=== PATIENT | male | born 1970 | race Caucasian/White ===

== ENCOUNTER 2019-04-25 21:08 | Emergency (ER) | payer BC, OTHER ==
[~2019-04-25] VITALS: Ht 198.1 cm; Wt 154.5 kg
[2019-04-25 23:15] LABS: BASOPHILS # (AUTO) 0.13 x10^3/uL (0-0.1); BASOPHILS % (AUTO) 1 % (0-1); EOSINOPHILS # (AUTO) 0.17 x10^3/uL (0-0.4); EOSINOPHILS % (AUTO) 1 % (1-7); LYMPHOCYTES # (AUTO) 2.31 x10^3/uL (1-3.4); LYMPHOCYTES % (AUTO) 18 % (22-44); MD NO; MEAN CORPUSCULAR HEMOGLOBIN 30.1 pg (27.5-34.5); MEAN CORPUSCULAR HGB CONC 33.3 g/dL (33.2-36.2); MEAN CORPUSCULAR VOLUME 90.6 fL (81-97); MEAN PLATELET VOLUME 7.7 fL (7.4-10.4); MONOCYTES # (AUTO) 0.63 x10^3/uL (0.2-0.8); MONOCYTES % (AUTO) 5 % (2-9); NEUTROPHILS # (AUTO) 9.39 x10^3/uL (1.8-6.8); NEUTROPHILS % (AUTO) 74 % (42-75); PLATELET COUNT 298 x10^3/uL (130-400); RED BLOOD COUNT 5.75 x10^6/uL (4.38-5.82); RED CELL DISTRIBUTION WIDTH 13.9 % (9.4-14.8)
[2019-04-25 23:25] LABS: ALBUMIN 3.7 g/dL (3.4-5.0); ANION GAP 5 mmol/L (5-15); CALCIUM 8.9 mg/dL (8.5-10.1); CHLORIDE 107 mmol/L (98-107); CREATININE 1.21 mg/dL (0.7-1.3)
[2019-04-25 23:34] VITALS: BP 170/113
== END 2019-04-26 00:08 | disposition home or self-care (01) ==
LOC: ED 04-26
DX: R10.84 Generalized abdominal pain (principal); I10 Essential (primary) hypertension
CPT/HCPCS: 36415; 80048; 82040; 83735; 85025; 99283

== ENCOUNTER 2020-04-03 11:02 | Emergency (ER) | payer OTHER ==
[~2020-04-03] VITALS: Ht 198.1 cm; Wt 157.8 kg
[2020-04-03 11:06] VITALS: BP 172/128
--- NOTE | 2020-04-03 11:55 | NUR ---
REPORT FROM RUTHANN RN PROVIDER TO BEDSIDE- HE REPORTS SXS MORE THAN LIKELY BELLS PALSY. TO D/C WITH STEROIDS/ANTIVIRALS
== END 2020-04-03 12:26 | disposition home or self-care (01) ==
LOC: ED 11:24
DX: G51.0 Bell's palsy (principal); I10 Essential (primary) hypertension; K21.9 Gastro-esophageal reflux disease without esophagitis; R94.31 Abnormal electrocardiogram [ECG] [EKG]
CPT/HCPCS: 93005; 99283